=== PATIENT | male | born 1965 | race Caucasian/White ===

== ENCOUNTER 2018-06-25 08:00 | Outpatient (CLI) | payer OTHER | END 2018-06-25 08:01 | LOC: LAB.WCP 08:00 | PROVIDERS: ATTEND Family Medicine | DX: R31.9 Hematuria, unspecified (principal) | CPT/HCPCS: 36415; 84153 ==

== ENCOUNTER 2019-10-09 02:20 | Emergency (ER) | payer OTHER ==
--- NOTE | 2019-10-09 02:59 | ED Physician Documentation ---
History of Present Illness - Stated complaint Stated Complaint: MALE - Chief complaint Chief Complaint: Abd Pain - Additonal information Additional information: This is a 54-year-old male presents with urinary obstruction. He states that he has had ongoing urinary issues for months now. He has prostatitis and was found to have bladder stones, these were removed at but he continued to have prostatitis so he underwent a prostate surgery called "Rezume" that reportedly is a heat treatment that is aimed at debulking his prostate, this was done at [facility] [address] Marquez, his urologist. He was then treated with 3 rounds of antibiotic medications for prostatitis, and he has required a catheter for urinary retention. He presented to [facility] earlier today because his catheter was not draining and he had pain. This was flushed and it was draining appropriately and his pain resolved, but when he left the hospital it stopped draining and he woke up with severe pain again. He presents here due to this pain and the lack of his drainage from his catheter. No fever. Review of Systems Constitutional: denies: Fever GI: denies: Vomiting : reports: Unable to Void Skin: denies: Rash PD PAST MEDICAL HISTORY - Past Medical History : Retention, Other (Prostatitis) - Present Medications Home Medications: Ambulatory Orders Medication Instructions Recorded Confirmed Cefdinir 300 mg PO BID #14 capsule 10/09/19 - Allergies Allergies/Adverse Reactions: Allergies Allergy/AdvReac Type Severity Reaction Status Date / Time No Known Drug Allergies Allergy Verified 10/09/19 03:36 PD ED PE NORMAL - Vitals Vital signs reviewed: Yes - General General: Alert and oriented X 3, Other (Uncomfortable appearing, nontoxic male) - HEENT HEENT: PERRL - Neck Neck: Supple, no meningeal sign - Cardiac Cardiac: No murmur, Other (Tachycardic, regular rhythm) - Respiratory Respiratory: No respiratory distress, Clear bilaterally - Abdomen Abdomen: Soft, Non tender, Non distended - Male Male : Other ( Penis is normal in appearance there is a catheter entering the urethra, there is no flow from the catheter.) - Derm Derm: Warm and dry - Extremities Extremities: No deformity - Neuro Neuro: Alert and oriented X 3 - Psych Psych: Normal mood, Normal affect Results - Vitals Vitals: Vital Signs - 24 hr 10/09/19 10/09/19 02:35 04:49 Temperature 36.7 C Heart Rate 112 H 72 Respiratory 24 16 Rate Blood Pressure 142/108 H 130/88 H O2 Saturation 98 96 Oxygen O2 Source Room air - Labs Labs: Laboratory Tests 10/09/19 03:45 Sodium 141 Potassium 3.3 L Chloride 107 Carbon Dioxide 25 Anion Gap 9.0 BUN 18 Creatinine 1.0 Estimated GFR (MDRD) 78 L Glucose 113 H Calcium 9.3 PD MEDICAL DECISION MAKING - ED course Complexity details: considered differential (Urinary obstruction, UTI, chronic prostatitis, clot, bladder stone) ED course: Patient arrives and is very uncomfortable, his catheter was flushed and he had return of flow of urine from the catheter and his discomfort completely resolved. Records reviewed from [facility], his urine today was nitrite positive and had white blood cells and red blood cells and concerning for infection, particularly with the nitrate positive urine. He was not sent home with any antibiotics. Here he was given dose of Keflex and started him on cefdinir. It sounds like in the recent past he has been on fluoroquinolones, but I think treating with a cephalosporin pending the results of his culture is reasonable. BMP was obtained and his kidney function is normal. After observation and re- flushing his catheter patient is asymptomatic, he is having no further pain, his catheter is draining pale urine normally. The urine is not grossly bloody. It appears that he had small amount of clot that was the cause of his obstruction. He has follow-up with his urologist, and would like to go home at this time. I discussed that if he has further obstruction or other concerning symptoms such as abdominal pain or fever he should return to the emergency department immediately. Patient agreed with this plan and was discharged home in the care of his partner. Departure - Departure Disposition: 01 Home, Self Care Clinical Impression: Urinary obstruction Condition: Good Follow-Up: Your,Urologist [Other] (Call to discuss your symptoms and arrange close follow up) Prescriptions: Cefdinir 300 mg PO BID #14 capsule Comments: You were seen today for obstruction of your catheter. I am glad that this has been resolved. Your kidney function appears normal today (creatinine is 1.0) Please continue to follow up closely with your urologist on your urinary issues. Your urinalysis reviewed from [facility] does appear to show an infection, we will treat you with a week of cefdinir. [facility] should call you if your urine culture comes back with a specific bacteria. If you develop severe pain, if your Johnson is not draining, or if you have other concerning symptoms return to the emergency department Discharge Date/Time: 10/09/19 04:52
[2019-10-09] MEDS ORDERED: cephALEXin 250 MG CAPSULE PO STA (03:27)
[2019-10-09 04:02] LABS: CALCIUM 9.3 mg/dL (8.5-10.3)
[2019-10-09 04:49] VITALS: BP 130/88
== END 2019-10-09 04:52 | disposition home or self-care (01) ==
LOC: ED 02:20
DX: T83.091A Other mechanical complication of indwelling urethral catheter, initial encounter (principal); Y84.6 Urinary catheterization as the cause of abnormal reaction of the patient, or of later complication, without mention of misadventure at the time of the procedure; N39.0 Urinary tract infection, site not specified; Z98.890 Other specified postprocedural states
CPT/HCPCS: 36415; 51700; 51798; 80048; 99284; A9270

== ENCOUNTER 2020-07-03 11:08 | Outpatient (CLI) | payer MEDICAID ==
--- NOTE | 2020-07-03 14:18 | XRAY Report ---
PROCEDURE: Elbow 2 View LT INDICATIONS: ARM PAIN,LEFT TECHNIQUE: 2 views of the elbow were acquired. COMPARISON: None. FINDINGS: Bones: No fractures or dislocations. No suspicious bony lesions. Soft tissues: No elbow joint effusion. No suspicious soft tissue calcifications. IMPRESSION: No trauma found, source of pain is not identified. Reviewed by: Jarrod Hodges MD on 07/03/2020 2:17 PM PDT Approved by: Jarrod Hodges MD on 07/03/2020 2:17 PM PDT Station ID: [id number]
== END 2020-07-03 11:09 | disposition home or self-care (01) ==
LOC: DI 11:08
PROVIDERS: ATTEND Family Medicine
DX: M79.602 Pain in left arm (principal)

== ENCOUNTER 2020-10-04 10:41 | Outpatient (CLI) | payer OTHER, MEDICAID ==
[2020-10-04 18:10] LABS: BASOPHILS # (AUTO) 0.1 10^3/uL (0.0-0.1); BASOPHILS % (AUTO) 0.8 %; EOSINOPHILS # (AUTO) 0.2 10^3/uL (0.0-0.7); EOSINOPHILS % (AUTO) 2.2 %; MEAN CORPUSCULAR HEMOGLOBIN 28.8 pg (27.0-31.0); MEAN CORPUSCULAR HGB CONC 32.3 g/dL (32.0-36.0); MEAN PLATELET VOLUME 10.3 fL (7.4-11.4); MONOCYTES # (AUTO) 0.5 10^3/uL (0.0-1.0); MONOCYTES % (AUTO) 6.7 %; NEUTROPHILS # (AUTO) 3.4 10^3/uL (1.5-6.6); NEUTROPHILS % (AUTO) 47.9 %; PLT - PLATELET COUNT 247 10^3/uL (130-450); RED BLOOD COUNT 5.56 10^6/uL (4.70-6.10); RED CELL DISTRIBUTION WIDTH 12.3 % (12.0-15.0); WHITE BLOOD COUNT 7.1 x10^3/uL (4.8-10.8)
[2020-10-04 18:44] LABS: ALBUMIN 4.5 g/dL (3.2-5.5); ALBUMIN/GLOBULIN RATIO 1.5 (1.0-2.2); ALKALINE PHOSPHATASE 60 IU/L (42-121); ALT ALANINE AMINOTRANSFERASE 30 IU/L (10-60); AST ASPARTATE AMINOTRANSFERASE 25 IU/L (10-42); BILIRUBIN,TOTAL 1.6 mg/dL (0.2-1.0); BUN - BLOOD UREA NITROGEN 20 mg/dL (6-20); CALCIUM 9.3 mg/dL (8.5-10.3); CARBON DIOXIDE - CO2 22 mmol/L (21-32); CHLORIDE 108 mmol/L (101-111); CHOLESTEROL 229 mg/dL; GLUCOSE 97 mg/dL (70-100); HDL CHOLESTEROL 38 mg/dL; LDL CHOLESTEROL,CALCULATED 166 mg/dL; LDL/HDL RATIO 4.4 (<3.6); SODIUM 138 mmol/L (135-145); TOTAL PROTEIN 7.5 g/dL (6.7-8.2); VLDL CHOLESTEROL 25 mg/dL
== END 2020-10-04 23:59 ==
LOC: LAB.WCP 10:41
PROVIDERS: ATTEND Nurse Practitioner Family
DX: I10 Essential (primary) hypertension (principal); E78.5 Hyperlipidemia, unspecified; R35.0 Frequency of micturition; E04.1 Nontoxic single thyroid nodule; R31.9 Hematuria, unspecified
CPT/HCPCS: 36415; 80053; 80061; 83721; 84153; 84443; 85025

== ENCOUNTER 2020-11-22 08:55 | Outpatient (CLI) | payer OTHER, MEDICAID ==
--- NOTE | 2020-11-22 10:34 | CARDIAC PROCEDURE NOTE ---
DATE OF SERVICE: 11/22/2020 Physician: Danae Jewell MD, [facility] INDICATION: Family history of cardiovascular disease, hypertension. CARDIAC RISK FACTORS: Male gender, hypertension, family history of heart disease, elevated cholesterol. DESCRIPTION OF PROCEDURE: After signing informed consent, the patient underwent a Holger-protocol treadmill stress test. No cardiac imaging was ordered with this test. RESTING HEART RATE: 69. PEAK HEART RATE: 141 (85% predicted maximum heart rate for age). RESTING BLOOD PRESSURE: 141/88. PEAK BLOOD PRESSURE: 191/79. The patient exercised for 9 minutes on a Holger-protocol treadmill stress test. He achieved a peak heart rate of 141 (85% PMHR) and 10.16 METs. The patient had no chest pain. He had moderate shortness of breath at peak. He rated his perceived exertion at 15/20 on the Niya scale at peak. Oxygen saturation was 95-98% on room air throughout the test. RESTING EKG: Normal sinus rhythm, possible LVH voltage, flat T-wave in aVL. EKG AT PEAK: T-wave flattening in leads II, III, aVL, aVF, and V5 and V6 develop. Rare PVC noted in recovery. T waves return to baseline after 3 min. SUMMARY 1. Abnormal resting EKG. 2. Fair-good exercise tolerance. 3. Abnormal ischemic EKG changes develop with exercise. 4. No imaging was ordered with this test. IMPRESSION: Borderline abnormal stress test. RECOMMENDATIONS: Risk factor management advised and consider repeat stress testing with cardiac imaging, if clinically indicated. TD: 11/22/2020 10:15 [facility]
== END 2020-11-22 08:56 | disposition home or self-care (01) ==
LOC: DI 08:55
PROVIDERS: ATTEND Nurse Practitioner
DX: I10 Essential (primary) hypertension (principal); Z82.49 Family history of ischemic heart disease and other diseases of the circulatory system; R94.31 Abnormal electrocardiogram [ECG] [EKG]